=== PATIENT | male | born 1990 | race Caucasian/White ===

== ENCOUNTER → 2020-04-19 | Outpatient (CLI) | payer OTHER ==
--- NOTE | 2020-04-19 15:39 | RAD ---
EXAM: Right foot, 3 views. HISTORY: Pain. COMPARISON: None. FINDINGS: 3 views of the right foot are obtained. There is no acute fracture, dislocation or subluxation. No foreign body is seen. IMPRESSION: No acute osseous finding. Electronically signed by: Batshvea Kam MD (04/19/2020 3:36 PM) [id number]
== END ==
LOC: DXRAD 15:15
DX: M79.671 Pain in right foot (principal)
CPT/HCPCS: 73630

== ENCOUNTER 2021-01-10 20:17 | Emergency (ER) | payer OTHER ==
[~2021-01-10] VITALS: Ht 185.4 cm; Wt 105.7 kg
--- NOTE | 2021-01-10 20:41 | PHYS DOC ---
General Adult EDM: Chief Complaint: BACK PAIN - NO INJURY HPI: HPI: 30-year-old male presents with hematuria and right flank pain. The patient thought his urine looked strange earlier in the week so he was referred to urgent care. They found him to have blood in his urine and advised that he come to the ER. A few days ago the patient had bilateral flank pain radiating around to the mid abdomen bilaterally. He currently has right flank discomfort that he describes as a mild cramp. He denies dysuria or increased urinary frequency. No history of kidney stones. Denies fever or chills. Review of Systems: Review of Systems: Constitutional: Denies fever or chills Eyes: Denies change in visual acuity HENT: Denies nasal congestion or sore throat Respiratory: Denies cough or shortness of breath Cardiovascular: Denies chest pain or edema GI: Denies abdominal pain, nausea, vomiting, bloody stools or diarrhea : Hematuria Musculoskeletal: Right flank pain Integument: Denies rash Neurologic: Denies headache, focal weakness or sensory changes Endocrine: Denies polyuria or polydipsia Lymphatic: Denies swollen glands Psychiatric: Denies depression or anxiety Current Medications: Current Meds: Current Medications Medications (Trade) Dose Ordered Sig/Judah Start Time Stop Time Status Last Admin Dose Admin Sodium Chloride 1,000 ml @ 1,000 mls/hr 1X ONCE 01/10/21 20:45 01/10/21 21:44 UNV Allergies: Allergies: Allergies Coded Allergies Type Severity Reaction Last Updated Verified No Known Drug Allergies 01/10/21 No Physical Exam: PE: Constitutional: Well developed, well nourished, no acute distress, non-toxic appearance. [] HENT: Normocephalic, atraumatic, bilateral external ears normal, oropharynx moist, no oral exudates, nose normal. [] Eyes: PERRLA, EOMI, conjunctiva normal, no discharge. [] Neck: Normal range of motion, no tenderness, supple, no stridor. [] Cardiovascular: Heart rate regular rhythm, no murmur [] Lungs & Thorax: Bilateral breath sounds clear to auscultation [] Abdomen: Bowel sounds normal, soft, no tenderness, no masses, no pulsatile masses. [] Skin: Warm, dry, no erythema, no rash. [] Back: No tenderness, no CVA tenderness. [] Extremities: No tenderness, no cyanosis, no clubbing, ROM intact, no edema. [] Neurologic: Alert and oriented X 3, normal motor function, normal sensory function, no focal deficits noted. [] Psychologic: Affect normal, judgement normal, mood normal. [] EKG: EKG: [] Radiology/Procedures: Radiology/Procedures: [] Impressions: CT abdomen and pelvis without contrast: Reason for examination: Right-sided abdominal pain and flank pain. Helical images were obtained through the abdomen and pelvis with no intravenous or oral contrast administered. Reconstruction was performed in sagittal and coronal planes. Exposure: One or more of the following individualized dose reduction techniques were utilized for this examination: 1. Automated exposure control 2. Adjustment of the mA and/or kV according to patient size 3. Use of iterative reconstruction technique. The lung bases are clear. The heart size is normal with no pericardial effusion evident. The liver appears to be enlarged at 22.7 cm with diffuse fatty infiltration but no other focal lesions are seen. No abnormality seen at the spleen, adrenal glands, gallbladder or pancreas. The abdominal aorta and inferior vena cava show no gross abnormalities. The colon shows no evidence of diverticulosis, diverticulitis or colitis. No abnormality seen at the appendix. The small intestinal tract shows no abnormal dilatation, wall thickening or obstruction. There is large amount of gastric content but no evidence of gastric wall thicke mike or obstruction. No abnormality seen at the duodenum. The kidneys show no renal masses, renal calculi, hydronephrosis or evidence of obstructive uropathy. No abnormality seen at the bladder, prostate gland or seminal vesicles. No free fluid or free air seen in the abdomen or pelvis. There are bilateral chronic appearing pars defects at the L4 level with a grade 1 anterolisthesis of L4 on L5 and moderate loss of disc height. No acute bony abnormalities are seen. IMPRESSION: Enlarged liver with diffuse fatty infiltration. No renal calculi or evidence of hydronephrosis or obstructive uropathy. Chronic appearing bilateral pars defects at L4 with a grade 1 anterolisthesis of L4 on L5 and moderate loss of disc height at the L4-5 disc level. No acute abnormality seen in the abdomen or pelvis. Electronically signed by: Marisa Calixto MD (01/10/2021 9:31 PM) [facility] DICTATED AND SIGNED BY: MARISA CALIXTO MD DATE: 01/10/212118 CC: UDAY BEEBE DO; FRANCO TAMAYO ~MTH0 0 Heart Score: C/O Chest Pain: N/A Risk Factors: Risk Factors: DM, Current or recent (<one month) smoker, HTN, HLP, family history of CAD, obesity. Risk Scores: Score 0 - 3: 2.5% MACE over next 6 weeks - Discharge Home Score 4 - 6: 20.3% MACE over next 6 weeks - Admit for Clinical Observation Score 7 - 10: 72.7% MACE over next 6 weeks - Early Invasive Strategies Course & Med Decision Making: Course & Med Decision Making Pertinent Labs and Imaging studies reviewed. (See chart for details) The patient's labs are significant for elevated liver enzymes. I spoke with the patient and he admits to drinking alcohol heavily. I told him he needs to decrease his alcohol consumption and follow-up on these labs to make sure they improve. Other things to consider in the differential are hepatitis. He can have this evaluated with his primary physician as well. He states verbal understanding. He is stable for discharge at this time. [] Dragon Disclaimer: Dragon Disclaimer: This electronic medical record was generated, in whole or in part, using a voice recognition dictation system. Departure Departure: Impression: Primary Impression: Elevated liver enzymes Additional Impression: Hepatomegaly Disposition: 01 HOME / SELF CARE / HOMELESS Condition: STABLE Referrals: FRANCO TAMAYO (PCP) Patient Instructions: Hepatomegaly, [id number] UDAY BEEBE DO Jan 10, 2021 20:41
[2021-01-10] MEDS ORDERED: IV NORMAL SALINE 1,000ML 1,000 ML IV ONE (20:45)
[2021-01-10 21:01] LABS: BASO # 0.1 x10^3/uL (0.0-0.2); BASO % 1 % (0-3); EOS # 0.2 x10^3/uL (0.0-0.7); EOS % 3 % (0-3); HEMATOCRIT 42.1 % (39.0-53.0); HEMOGLOBIN 14.2 g/dL (13.0-17.5); LYMPH # 1.5 x10^3/uL (1.0-4.8); LYMPH % 19 % (24-48); MEAN CORPUSCULAR HEMOGLOBIN 33 pg (25-35); MEAN CORPUSCULAR HGB CONC 34 g/dL (31-37); MEAN CORPUSCULAR VOLUME 98 fL (79-100); MONO # 0.6 x10^3/uL (0.0-1.1); MONO % 8 % (0-9); NEUT # 5.2 x10^3uL (1.8-7.7); NEUT % 68 % (31-73); PLATELET COUNT 197 x10^3/uL (140-400); RED BLOOD COUNT 4.31 x10^6/uL (4.30-5.70); WHITE BLOOD COUNT 7.6 x10^3/uL (4.0-11.0)
[2021-01-10 21:18] LABS: ALBUMIN 3.6 g/dL (3.4-5.0); CALCIUM 8.3 mg/dL (8.5-10.1); CREATININE 0.9 mg/dL (0.7-1.3); GFR 97.8; TOTAL BILIRUBIN 0.8 mg/dL (0.2-1.0); TOTAL PROTEIN 7.1 g/dL (6.4-8.2)
[2021-01-10 21:20] LABS: POTASSIUM 2.7 mmol/L (3.5-5.1)
--- NOTE | 2021-01-10 21:34 | RAD ---
CT abdomen and pelvis without contrast: Reason for examination: Right-sided abdominal pain and flank pain. Helical images were obtained through the abdomen and pelvis with no intravenous or oral contrast admi nistered. Reconstruction was performed in sagittal and coronal planes. Exposure: One or more of the following individualized dose reduction techniques were utilized for thi s examination: 1. Automated exposure control 2. Adjustment of the mA and/or kV according to patient size 3. Use of iterative reconstruction technique. The lung bases are clear. The heart size is normal with no pericardial effusion evident. The liver appears to be enlarged at 22.7 cm with diffuse fatty infiltration but no other focal lesion s are seen. No abnormality seen at the spleen, adrenal glands, gallbladder or pancreas. The abdominal aorta and inferior vena cava show no gross abnormalities. The colon shows no evidence of diverticulo sis, diverticulitis or colitis. No abnormality seen at the appendix. The small intestinal tract shows no abnormal dilatation, wall thickening or obstruction. There is large amount of gastric content but no evidence of gastric wall thickening or obstruction. No abnormality seen at the duodenum. The kidn eys show no renal masses, renal calculi, hydronephrosis or evidence of obstructive uropathy. No abnormality seen at the bladder, prostate gland or seminal vesicles. No free fluid or free air see n in the abdomen or pelvis. There are bilateral chronic appearing pars defects at the L4 level with a grade 1 anterolisthesis of L4 on L5 and moderate loss of disc height. No acute bony abnormalities ar e seen. IMPRESSION: Enlarged liver with diffuse fatty infiltration. No renal calculi or evidence of hydronephrosis or obstructive uropathy. Chronic appearing bilateral pars defects at L4 with a grade 1 anterolisthesis of L4 on L5 and moderat e loss of disc height at the L4-5 disc level. No acute abnormality seen in the abdomen or pelvis. Electronically signed by: Michelle Steven MD (01/10/2021 9:31 PM) [facility]
[2021-01-10 21:41] LABS: BILIRUBIN,URINE NEG (NEG); CLARITY,URINE CLEAR; COLOR,URINE YELLOW; GLUCOSE,URINE NEG (NEG); NITRITE,URINE NEG (NEG); UROBILINOGEN,URINE 0.2 mg/dL (0.2 mg/dL)
[2021-01-10 21:46] LABS: BACTERIA,URINE 0 /HPF (0-FEW); RBC,URINE RARE /HPF (0-2); WBC,URINE 0 /HPF (0-4)
[2021-01-10] MEDS ORDERED: POTASSIUM CHLORIDE 20 MEQ TABLET.ER. PO ONE (22:00)
[2021-01-10 22:20] VITALS: BP 142/70
== END 2021-01-10 22:24 | disposition home or self-care (01) ==
LOC: ER 20:17
DX: R74.8 Abnormal levels of other serum enzymes (principal); R16.0 Hepatomegaly, not elsewhere classified
CPT/HCPCS: 36415; 74176; 80053; 81001; 85025; 96360; 99284; J7030